=== PATIENT | male | born 1975 | race Caucasian/White ===

== ENCOUNTER 2016-06-17 07:37 | Emergency (ER) | payer SELFPAY ==
[~2016-06-17] VITALS: Ht 193 cm; Wt 80.0 kg
[2016-06-17 07:55] VITALS: BP 130/90; PULSE 92; RESP 20; TEMP 98.7
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
[2016-06-17 08:57] LABS: AMPHETAMINE, URINE NEG (NEG); BARBITURATES, URINE NEG (NEG); COCAINE, URINE POS (NEG)
[2016-06-17 10:27] VITALS: BP 138/100; PULSE 98; RESP 18; TEMP 97.7; O2SAT 97
[2016-06-17 10:37] LABS: BASOPHIL % 0.5 % (0.0-2.0); EOSINOPHIL # 0.1 TH/MM3 (0-0.4); EOSINOPHIL % 0.6 % (0.0-4.0); HEMATOCRIT 55.1 % (39.0-51.0); HEMO FLAGS DIFF FINAL; LYMPH % 16.7 % (9.0-44.0); LYMPHOCYTE # 1.4 TH/MM3 (1.0-4.8); MEAN CELL VOLUME 100.6 FL (80.0-100.0); MEAN CORPUSCULAR HEMOGLOBIN 35.4 PG (27.0-34.0); MEAN CORPUSCULAR HGB CONC 35.2 % (32.0-36.0); MONO % 9.9 % (0.0-8.0); NEUT % 72.3 % (16.0-70.0); PLATELET COUNT 366 TH/MM3 (150-450); RED BLOOD COUNT 5.48 MIL/MM3 (4.50-5.90); WHITE BLOOD COUNT 8.3 TH/MM3 (4.0-11.0)
[2016-06-17 10:56] LABS: ANION GAP 8 MEQ/L (5-15); AST (GOT) 52 U/L (15-37); BICARBONATE 29.8 MEQ/L (21.0-32.0); BLOOD UREA NITROGEN 5 MG/DL (7-18); CHLORIDE 100 MEQ/L (98-107); GLOMERULAR FILTRATION RATE 60 ML/MIN (>89); SODIUM (NA) 138 MEQ/L (136-145)
[2016-06-17 11:00] LABS: ALKALINE PHOSPHATASE 89 U/L (45-117); ALT (GPT) 42 U/L (12-78); TOTAL BILIRUBIN ADULT 0.4 MG/DL (0.2-1.0)
[2016-06-17] MEDS ORDERED: LORazepam 2 MG/ML VIAL IV PUSH PRN ×4 (11:15)
[2016-06-17] MEDS ORDERED: LORazepam 2 MG TAB PO PRN (11:15)
[2016-06-17] MEDS ORDERED: LORazepam 1 MG TAB PO PRN (11:15)
[2016-06-17] MEDS ORDERED: FLUMAZENIL 0.5 MG/5 ML VIAL IV PUSH PRN (11:15)
[2016-06-17 12:53] VITALS: BP 156/88; PULSE 93; RESP 18; O2SAT 98
[2016-06-17 12:54] VITALS: BP_SYST 156; BP_DIAS 8; BP_DIAS 88; PULSE 93; RESP 18; O2SAT 98
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
== END 2016-06-17 18:49 | disposition home or self-care (01) ==
LOC: NEPJ 07:37
DX: F10.120 Alcohol abuse with intoxication, uncomplicated (principal); Z72.0 Tobacco use; Y90.8 Blood alcohol level of 240 mg/100 ml or more
CPT/HCPCS: 80053; 80307; 80320; 85025; 99283